=== PATIENT | female | born 1980 | race Caucasian/White ===

== ENCOUNTER 2025-02-22 15:22 | Outpatient (REF) | payer OTHER, SELFPAY ==
--- OUTSIDE RECORDS SUMMARY | 2025-02-20 23:59 | XMS_ITS | Continuity of Care Document ---
Author Organization [facility] Address [address] [place] [address]- Care Team Providers Care Loading Rack Supervisor Name Role Phone Cristi SANDS, Erinn Dominguez Primary Care Physician [phone] Encounter [facility] NBR [id number] Date(s): 10/23/24 - 02/20/25 [facility] Adult [address] [place] [address]- Attending Physician: Erinn Colin NP Referring Physician: Mayur Leos MD Encounter Type: Pre Office Visit Allergies, Adverse Reactions, Alerts Substance Criticality Severity Reaction Reaction Severity Status Augmentin Active Bactrim Active Immunizations Given and Recorded Vaccine Date Status Refusal Reason influenza virus vaccine, inactivated 12/16/23 Baljit rded influenza virus vaccine, inactivated 12/25/22 Baljit rded influenza virus vaccine, inactivated 12/11/21 Baljit rded influenza virus vaccine, inactivated 12/06/20 Baljit rded influenza virus vaccine, inactivated 12/01/19 Baljit rded influenza virus vaccine, inactivated 12/15/14 Baljit rded Measles/Mumps/Rubella Virus Vaccine 03/06/23 Recor ded Measles/Mumps/Rubella Virus Vaccine 05/25/20 Recor ded [id number] bivalent booster vax 01/03/22 Recorded SARS-CoV-2 (COVID-19) mRNA-1273 vaccine 01/24/21 R ecorded SARS-CoV-2 (COVID-19) mRNA-1273 vaccine 04/05/20 R ecorded SARS-CoV-2 (COVID-19) mRNA-1273 vaccine 04/03/20 R ecorded SARS-CoV-2 (COVID-19) mRNA-1273 vaccine 03/06/20 R ecorded zoster vaccine, inactivated 09/07/20 Recorded zoster vaccine, inactivated 05/25/20 Recorded tetanus/diphtheria/pertussis, acel(Tdap) 11/11/18 Given tetanus/diphtheria/pertussis, acel(Tdap) 03/13/11 Recorded pneumococcal 23-valent vaccine 01/11/13 Recorded pneumococcal 13-valent vaccine 03/11/12 Recorded pneumococcal 13-valent vaccine 05/06/11 Recorded pneumococcal 13-valent vaccine 03/13/11 Recorded diphtheria/tetanus/pertussis, acel(DTaP) 03/11/12 Recorded Hepatitis A-Hepatitis B Vaccine 09/25/11 Recorded Hepatitis A-Hepatitis B Vaccine 03/13/11 Recorded Medications acyclovir 400 mg oral tablet 1 tablet = 400 mg, By Mouth, 2 times a day, # 180 tablet, 3 Refills, Maintenance, 02/24/24 2:04:00 PM EST, [facility]/pharmacy #[id number], Partial fill upon patient request if the prescription is for a schedule II opioid drug., 163, cm, 01/16/24 9:31:00 EST, Height Start Date: 02/24/24 Status: Ordered Medication Dispense Status: Completed Quantity: 180.0 Unit: tablet Total Allowed Fills: 4 Fills Dispensed: 0 CoQ10 By Mouth, Daily, 0 Refills, Maintenance, 11/27/17 4:30:38 PM EDT Start Date: 11/27/17 Status: Ordered Medication Dispense Status: Completed Total Allowed Fills: 1 Fills Dispensed: 0 turmeric = 400 mg, By Mouth, Daily, 0 Refills, Maintenance, 11/27/17 4:30:50 PM EDT Start Date: 11/27/17 Status: Ordered Medication Dispense Status: Completed Total Allowed Fills: 1 Fills Dispensed: 0 Problem List Condition Confirmation Course Effective Dates Status Health Status Informant 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 1, 2, 3 Confirmed Active History of cervical LEEP 2003 (Dr. Netta Kilgore) Confirmed Active Vulvar dysplasia Confirmed Active History of venous thrombosis Confirmed Active Hx of stem cell transplant Confirmed Active Herpes simplex Confirmed Active , high-risk, assisted reproductive technology Confirmed Active Hx of autoimmune hemolytic anemia Confirmed Active Keratoconjunctivitis of right eye Confirmed Active Macular edema of right eye Confirmed Active cfDNA testing nondiagnostic Confirmed Active Pre-eclampsia Confirmed Active 1Normal maternal echocardiogram 01/29/2018 2Providers: [facility] (Oncology Dr. Jose Rodriguez, PRODUCTION MACHINE T[employer]ER Roro Carlos, Benign job placement counselor Dr. Mayur Rios). s/p CHOP x 6 cycles. s/p XRT right orbit and sinus 01/2010. s/p allogenic stem cell transplantation 02/2010. 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 Hx SVC clot during chemo s/p 6 months lovenox and then bASA. 3Providers: Social History Social History Type Response Smoking Status Never smoker entered on: 08/07/17 Sex Sex Representation Female (finding) Patient Care team information Care Team Personnel Name: Cristi SANDS, Erinn Dominguez Position: [facility] PCO Associate Professional Member Role: PCP Address: [address] [place] [id number] Telecom: Name: Ludin Perez MD Position: [facility] Physician - Infectious Disease Member Role: Lifetime Consulting Physician Address: [address] [place] [address] Infectious Disease [place], [place] [address] Telecom: Care Team Related Persons Name: THUY RIVERA Name: AAKASH RIVERA Name: YURIY UP Insurance Providers Guarantor name: JAIRO RIVERA Health Plan Information #: 1 Payer: [employer] Payer Identifier: NA Member Number: [id number] Group Number: [id number] Subscriber Identifier: NA Relationship to Subscriber: self Coverage Type: Commercial Managed Care - HMO Coverage Verification Date: NA Telecom: NA Address: NA
[2025-02-22 15:35] LABS: MANUAL DIFF FLAG NO
[2025-02-22 16:01] LABS: Hematocrit 38.9 % (37.0-47.0); Hemoglobin 13.6 g/dl (12.0-16.0); Imm Gran Abs Auto 0.02 X10*3/uL (0.00-0.03); Imm Gran Pct Auto 0.4 % (0.0-0.4); Lymphocytes Absolute Auto 1.8 X10*3/uL (1.2-4.9); Mean Corpuscular HGB Conc 35.0 g/dl (31.0-35.0); Mean Corpuscular Hemoglobin 33.9 pg (27.0-33.0); Mean Corpuscular Volume 97.0 fL (80.0-98.0); NRBC Abs Auto 0.000 X10*3/uL (0.0-0.012); NRBC Pct Auto 0.0 /100WBC (0.0-0.2); Platelet Count 176 X10*3/uL (160-400); Red Blood Count 4.01 X10*6/uL (4.20-5.50); White Blood Count 5.0 X10*3/uL (4.8-10.8)
[2025-02-22 16:33] LABS: Alanine Aminotransferase 22 U/L (0-31); Aspartate Amino Transferase 22 U/L (5-31); Blood Urea Nitrogen 19 mg/dL (9-16); Estimated Glomerular Filt Rate > 60
== END 2025-02-22 15:23 ==
LOC: HO.LAB 15:22
PROVIDERS: PCP Nurse Practitioner Family; Visit Provider Ophthalmology
DX: Z79.899 Other long term (current) drug therapy (principal)
CPT/HCPCS: 36415; 82565; 84450; 84460; 84520; 85025